=== PATIENT | female | born 1965 | race African-American/Black ===

== ENCOUNTER 2016-05-20 08:37 | Emergency (ER) | payer MEDICAID ==
[2016-05-20 09:20] LABS: APPEARANCE CLEAR (CLEAR); BILIRUBIN NEGATIVE (NEGATIVE); COLOR YELLOW (YELLOW); GLUCOSE NEGATIVE (NEGATIVE); KETONE NEGATIVE (NEGATIVE); LEUKOCYTE ESTERASE NEGATIVE (NEGATIVE); NITRITE NEGATIVE (NEGATIVE); PROTEIN NEGATIVE (NEGATIVE); SPECIFIC GRAVITY 1.015 (1.005-1.020); UROBILINOGEN NORMAL (NORMAL)
[2016-05-20 09:41] LABS: BASOPHILS 0.6 % (0.0-2.0); EOSINOPHILS 4.8 % (0-7); HEMATOCRIT 37.7 % (36.0-48.0); HEMOGLOBIN 12.3 g/dL (12-16); IMMATURE GRANULOCYTES 0.2 % (0-5); LYMPHOCYTES 42.2 % (15-50); MCH 30.1 pg (26.0-34.0); MCHC 32.6 g/dL (31.0-37.0); MCV 92.2 fL (80.0-100.0); MEAN PLATELET VOLUME 10.6 fL (7.4-10.4); MONOCYTES 6.4 % (2-11); NEUTROPHILS 45.8 % (40-80); RBC 4.09 10x6/uL (4.00-5.40); RDW 12.8 % (11.5-14.5); WBC 5.5 10x3/uL (4.8-10.8)
[2016-05-20 09:44] LABS: PLATELET COUNT 211 10x3/uL (130-400)
[2016-05-20 09:55] LABS: ALBUMIN 3.9 g/dL (3.4-5.0); ANION GAP 11.8 mmol/L (8-16); BILIRUBIN - TOTAL 0.45 mg/dL (0.2-1.3); CALCIUM 9.9 mg/dL (8.5-10.1); CARBON DIOXIDE 29.5 mmol/L (21.0-32.0); POTASSIUM - SERUM 4.3 mmol/L (3.5-5.1)
== END 2016-05-20 13:26 | disposition home or self-care (01) ==
LOC: D.ER 08:37
PROVIDERS: Emergency Medicine
DX: I10 Essential (primary) hypertension (principal); M79.604 Pain in right leg; C53.9 Malignant neoplasm of cervix uteri, unspecified; K21.9 Gastro-esophageal reflux disease without esophagitis

== ENCOUNTER 2016-08-23 10:00 | Inpatient (IN) | payer MEDICAID ==
[~2016-08-23] VITALS: Ht 170.2 cm; Wt 98.9 kg
[2016-08-23 10:52] LABS: APPEARANCE CLEAR (CLEAR); BILIRUBIN NEGATIVE (NEGATIVE); COLOR STRAW (YELLOW); GLUCOSE 1000 mg/dL (NEGATIVE); KETONE SMALL mg/dL (NEGATIVE); LEUKOCYTE ESTERASE NEGATIVE (NEGATIVE); NITRITE NEGATIVE (NEGATIVE); PROTEIN NEGATIVE (NEGATIVE); SPECIFIC GRAVITY 1.015 (1.005-1.020); UROBILINOGEN NORMAL (NORMAL)
[2016-08-23 11:04] LABS: BASOPHILS 0.2 % (0-2); EOSINOPHILS 2.1 % (0-7); HEMOGLOBIN 13.7 g/dL (12-16); IMMATURE GRANULOCYTES 0.2 % (0-5); LYMPHOCYTES 41.7 % (15-50); MCH 30.5 pg (26.0-34.0); MCHC 33.4 g/dL (31.0-37.0); MCV 91.3 fL (80.0-100.0); MEAN PLATELET VOLUME 11.3 fL (7.4-10.4); MONOCYTES 7.7 % (2-11); NEUTROPHILS 48.1 % (40-80); PLATELET COUNT 213 10x3/uL (130-400); RBC 4.49 10x6/uL (4.00-5.40); RDW 12.9 % (11.5-14.5); WBC 4.8 10x3/uL (4.8-10.8)
[2016-08-23 11:12] LABS: ALBUMIN 4.2 g/dL (3.4-5.0); ALKALINE PHOSPHATASE 180 U/L (46-116); ALT (SGPT) 31 U/L (10-68); CALC OSMOLALITY 289 mosm/kg (275-300); CALCIUM 9.8 mg/dL (8.5-10.1); CARBON DIOXIDE 28.5 mmol/L (21.0-32.0); CHLORIDE - SERUM 95 mmol/L (98-107); CREATININE - SERUM 1.3 mg/dL (0.6-1.3); POTASSIUM - SERUM 3.9 mmol/L (3.5-5.1); PROTEIN - SERUM 8.2 g/dL (6.4-8.2); SODIUM 133 mmol/L (136-145); UREA NITROGEN 17 mg/dL (7-18); eGFR NON AFRICAN AMERICAN 46 mL/min (90-120)
[2016-08-23 11:14] LABS: GLUCOSE 494 mg/dL (74-106)
[2016-08-23 11:51] LABS: KETONE - SERUM NEGATIVE (NEGATIVE)
[2016-08-23 14:24] VITALS: BP 119/68; BMI 34.2
[2016-08-23] MEDS ORDERED: ZESTORETIC 20-1 EACH PO (14:47)
[2016-08-23] MEDS ORDERED: PROTONIX40 MG PO (14:48)
[2016-08-23] MEDS ORDERED: BAYER ASPIRIN325 MG PO (14:48)
[2016-08-23 20:00] VITALS: BP 130/76
--- NOTE | 2016-08-23 20:00 | NUR ---
ASSESSMENT PER FLOWSHEET. IV PATENT LEFT AC OF NS AT 75CC'S/HR. SITE CLEAR. UP AD JOAQUINA TO BR VOIDS WELL. SR UP X1 CALL LIGHT WITHIN REACH DAUGHTER AT BEDSIDE. HX OF OLD CVA WITH RT SIDE SLIGHTLY WEAKER THAN LEFT.
--- NOTE | 2016-08-23 21:00 | NUR ---
DRCN=804. REGULAR INSULIN 28 UNITS GIVEN SUBC PER S/S TO LEFT UPPER ABDOMEN.SNACK OF LEANDRA CRACKERS AND DIET LEMONLIME SODA.
[2016-08-24] VITALS: BP 129/70
--- NOTE | 2016-08-24 | NUR ---
KVQD=376 NO COVERAGE PER MD ORDERS.
--- NOTE | 2016-08-24 03:17 | NUR ---
ZPSW=117. PT WAS GIVEN A SNACK OF LEANDRA CRACKERS AND PEANUT BUTTER WITH A DIET LEMONLIME SODA.
[2016-08-24 04:00] VITALS: BP 115/71
[2016-08-24 05:17] LABS: HEMOGLOBIN A1C 12.3 % (4.8-6.0)
[2016-08-24 05:30] LABS: ALBUMIN 3.5 g/dL (3.4-5.0); BILIRUBIN - TOTAL 0.38 mg/dL (0.2-1.3); CALCIUM 9.2 mg/dL (8.5-10.1); CARBON DIOXIDE 28.3 mmol/L (21.0-32.0); PROTEIN - SERUM 6.8 g/dL (6.4-8.2)
[2016-08-24 05:37] LABS: CREATININE - SERUM 0.9 mg/dL (0.6-1.3); POTASSIUM - SERUM 3.3 mmol/L (3.5-5.1)
--- NOTE | 2016-08-24 07:15 | NUR ---
PATIENT RECEIVED IN RIGHT LATERAL POSITION RESTING QUIETLY. RESPIRATIONS EVEN AND UNLABORED. DENIES NEEDS. SIDE RAILS UP X1. BED IN LOW POSITION. CALL LIGHT IN REACH.
[2016-08-24 08:35] VITALS: BP 138/73
--- NOTE | 2016-08-24 08:45 | NUR ---
PATIENT SITTING UP ON SIDE OF BED. NO SIGNS OF DISTRESS NOTED. DIETITIAN AT BEDSIDE. BED IN LOW POSITION. CALL LIGHT IN REACH.
--- NOTE | 2016-08-24 12:06 | NUR ---
PATIENT SITTING UP IN CHAIR ALERT WITH FAMILY PRESENT. NO SIGNS OF DISTRESS NOTED. ACCU CHECK 344. INSULIN PER SLIDING SCALE. NO NEEDS VOICED. CALL LIGHT IN REACH.
--- NOTE | 2016-08-24 12:22 | NUR ---
Nutrition Consult: Consult received for DM diet education. Pt reported that she drinks sweet tea and lemonade frequently. She said that a few weeks ago she "got depressed" and went on a "binge" of drinking abdias. Pt stated that she eats a lot of salads and vegetables. She does not eat much meat. Spoke with pt regarding blood sugar goal range, A1C goal range and what her numbers were now. Explained what diabetes is, how CHO intake affects blood sugar, and what foods contain CHO. Provided examples of a sample meal and explained label reading. Demonstrated CHO counting with pt. Stressed the importance of consistent meals/snacks including CHO each time. Pt stated that she was ready and willing to make these changes and wanted to feel better. Encouraged pt to contact RD with any questions/concerns. Thank you for the consult. RD following.
[2016-08-24 12:28] VITALS: Ht 170.2 cm; Wt 98.9 kg
[2016-08-24] MEDS ORDERED: LANTUS SOL100 UNIT/1 SC (13:41)
[2016-08-24] MEDS ORDERED: GLUCOPHAGE500 MG PO (13:42)
[2016-08-24 13:46] VITALS: BP 133/67
--- NOTE | 2016-08-24 14:04 | NUR ---
Patient Name: WILLI MCKEON Admission Status: ER Accout number: [id number] Admission Date: 08-23-2016 : 1965 Admission Diagnosis: Attending: OSMANY Current LOS: 1 Anticipated DC Date: 08-24-2016 Planned Disposition: Home with Home Health Primary Insurance: MEDICAID [place] Discharge Planning Comments: CM MET WITH PATIENT AND DAUGHTER (TIFFANIE) REGARDING D/C NEEDS AND PLANS. PATIENT STATED HER DAUGHTER WILL DRIVE HER HOME AT DISCHARGE. PATIENT HAS 4 STEPS W/RAILS TO ENTER HOME AND NO STAIRS ONCE INSIDE. PATIENT IS INDEPENDENT WITH HER CARE AND HAS A CANE AT HOME. PATIENT IS PICKING UP A GLUCOMETER AND STRIPS AT [facility] AT DISCHARGE TODAY. PATIENTS PCP IS DR. LOUIE PRINCE AT [facility]. PHARMACY IS [facility] [address]. PATIENT CHOSE [facility] AND SIGNED THE BREN FORM. CM WILL CONTINUE TO FOLLOW PATIENT WITH D/C NEEDS AND PLANS. PCP DR. LOUIE PRINCE AT [facility] [address]- [phone] TIFFANIE (DAUGHTER) [phone] Industrial Sales Engineer: Norma Xie Is the patient Alert and Oriented? Yes 0 * How many steps to enter\exit or inside your home? 4 W/RAILS 0 * PCP DR. LOUIE PRINCE ([facility]) 0 * Pharmacy [facility] [address] 0 * Preadmission Environment Home with Family 0 * ADLs Independent 0 * Equipment Cane 0 * List name and contact numbers for known caregivers / representatives who currently or will assist patient after discharge: TIFFANIE (DAUGHTER) [phone] 0 * Community resources currently utilized None 0 * Additional services required to return to the preadmission environment? Yes 0 * Can the patient safely return to the preadmission environment? Yes 0 * Has this patient been hospitalized within the prior 30 days at any hospital? No 0 Grand Total: 0
--- NOTE | 2016-08-24 14:50 | NUR ---
D/C TEACHING PROVIDED. QUESTIONS ANSWERED. DAUGHTER AT BEDSIDE. IV TO LEFT AC D/C WITH CATH TIP INTACT. SITE COVERED WITH GAUZE AND BANDAID.
--- NOTE | 2016-08-24 15:01 | NUR ---
PATIENT D/C HOME WITH DAUGHTER. REFUSES WHEELCHAIR ASSIST. AMBULATED OFF UNIT.
== END 2016-08-24 15:02 | disposition home health service (06) | DRG 639 ==
LOC: D.ER 10:00 → D.MS 13:31
PROVIDERS: Emergency Medicine; ADMIT Family Medicine
DX: E11.65 Type 2 diabetes mellitus with hyperglycemia (principal); I10 Essential (primary) hypertension; Z87.891 Personal history of nicotine dependence

== ENCOUNTER 2016-11-18 08:33 | Emergency (ER) | payer MEDICAID ==
[2016-08-24 12:28] VITALS: BMI 34.1
[~2016-11-18 08:33] MED LIST: BAYER ASPIRIN325 MG PO; GLUCOPHAGE500 MG PO; LANTUS SOL100 UNIT/1 SC; PROTONIX40 MG PO; ZESTORETIC 20-1 EACH PO
== END 2016-11-18 09:31 | disposition home or self-care (01) ==
LOC: D.ER 08:33
DX: S40.861A Insect bite (nonvenomous) of right upper arm, initial encounter (principal); L03.113 Cellulitis of right upper limb; I10 Essential (primary) hypertension; K21.9 Gastro-esophageal reflux disease without esophagitis

== ENCOUNTER 2017-04-29 10:50 | Observation (INO) | payer MEDICAID ==
[~2017-04-29] VITALS: Ht 170.2 cm; Wt 96.2 kg
--- NOTE | ~2017-04-29 | EC ---
PATIENT:WILLI MCKEON DATE OF SERVICE: 04/29/17 SEX: F MEDICAL RECORD: [id number] DATE OF : [birth year] LOCATION:D.M2 D.212 AGE OF PATIENT: 51 ADMISSION DATE: 04/29/17 REFERRING PHYSICIAN: INTERPRETING PHYSICIAN: ARNULFO KENDRICK MD ECHOCARDIOGRAM REPORT ECHO CHARGES 4 ECHO COMPLETE CLINICAL DIAGNOSIS: CHF ECHOCARDIOGRAPHIC MEASUREMENTS (adult normal given) AC root (d.<3.7cm) 3.0 cm LV Septum d (<1.2 cm> 1.4 cm Valve Excursion 1.9 cm LV Septum (systole) 1.7 cm Left Atria (s.<4.0cm> 4.4 cm LVPW d(<1.2cm) 1.5 cm RV (d.<2.3cm) 4.1 cm LVPW (sytole) 2.0 cm LV diastole(<5.6CM) 4.4 cm MV E-F(>70mm/sec) cm LV systole 2.7 cm LVOT Diameter 1.7 cm MV exc.(>10mm) 1.5 cm Est.ejection fraction (50-75%) % Pericardial Effusion Y DOPPLER: LVIT cm/sec A 151 cm/sec E 182 cm/sec LA cm/sec RVSP 29 mmHg LVOT 106 cm/sec AOP1/2T m/s Asc. Ao 159 cm/sec RVOT 93 cm/sec RA cm/sec PA 118 cm/sec AV Gradient Peak 10.17mmHg AV Mean 5.41 mmHg AV Area 1.2 cm MV Gradient Peak 24.55mmHg MV Mean 11.00mmHg MV Area cm COMMENTS: Rotary Dryer Operator: Bella KING Signal Helper: 1 Dr. Kendrick TAPE# PACS DATE OF SERVICE: 04/29/2017 Echocardiogram FINDINGS: 1. Left ventricular chamber size is within normal limits. Left ventricular systolic function is normal. Overall ejection fraction estimated at 60%. 2. Left atrium is enlarged at 4.4 cm. Right atrium and right ventricular chamber sizes are as well mildly dilated. 3. Valvular structures have normal structure and motion. ECHOCARDIOGRAM REPORT [id number] WILLI MCKEON 4. Doppler interrogation reveals mild aortic insufficiency, severe mitral regurgitation, and mild tricuspid regurgitation. No other valvular insufficiency or stenosis. Pulmonary systolic pressure is normal at 29 mmHg. 5. No evidence of pericardial effusion or left ventricular thrombus. TRANSINT:[id number] Voice Confirmation ID: [id number] DOCUMENT ID: [id number] ARNULFO KENDRICK MD at 1025 CC: [id number] DICTATION DATE: 04/29/17 1356 YARD GENERAL CAR SUPERVISOR: 04/29/17 1443 DIS IN 05/01/17 [place] [id number] [place] [id number]
--- NOTE | ~2017-04-29 | HEMODYNAMI ---
PATIENT:WILLI MCKEON MEDICAL RECORD: [id number] : [birth year] LOCATION:[address] [id number] ADMISSION DATE: 04/29/17 Generatedon:04/29/201714:30 Patient name: WILLI MCKEON Patient #: [id number] SSN: : 1965 Date of study: 04/29/2017 Page: Of Hemodynamic Procedure Report Patient Data Patient Demographics Procedure consent was obtained First Name: WILLI Gender: Female Last Name: MIKE : 1965 Patient #: [id number] Age: 51 year(s) Race: Black Additional ID: [id number] Contact details Address: [address] [place] [address] State: [place] City: [place] Zip code: [address] Past Medical History Allergies Allergen Reaction Date Comments Reported Other allergy 04/29/2017 amoxicilin Admission Admission Data Admission Date: 04/29/2017 Admission Time: 12:48 Room #: D.2122 Lab Results Lab Result Date: 04/29/2017 Lab Result Time: 0:00 Biochemistry Name Units Result Min Max BUN mg/dl 15 --(--*-)-- 7 18 Creatinine mg/dl 1 --(--*-)-- 0.6 1.3 CBC Name Units Result Min Max Hemoglobin g/dl 11.9 *-(----)-- 13.5 17.5 Procedure Procedure Types Cath Procedure Diagnostic Procedure [facility] w/Coronaries FFR/IVUS Intra-Coronary IVUS Initial PCI Procedure Coronary Stent Coronary Stent Initial Miscellaneous Procedures Moderate Sedation up to 30 minutes Procedure Description Procedure Date Procedure Date: 04/29/2017 Procedure Start Time: 14:00 Procedure End Time: 14:24 Procedure Staff Name Function Marilu De Los Santos RT Monitor Marco Kendrick MD Performing Physician Mis Booth RT Scrub Josselin Shipman RN Nurse Procedure Data Cath Procedure Fluoroscopy Diagnostic fluoroscopy Total fluoroscopy Time: 5.6 time: 5.6 min min Diagnostic fluoroscopy Total fluoroscopy dose: 948 dose: 948 mGy mGy Contrast Material Contrast Material Type Amount (ml) Isovue 300 145 Entry Location Entry Primary Successful Side Size Upsize Upsize Entry Closure Medel ccessful Closure Location (Fr) 1 (Fr) 2 (Fr) Remarks Device Remarks Radial Right 6 Fr Mechanical artery Short Compression Estimated blood loss: 5 ml Diagnostic catheters Device Type Used For End Catheter Placement DIAGNOSTIC Surveyor 110cm 5 Multi-vessel Fr catheter ([id number]) Angiography Procedure Complications No complications Procedure Medications Medication Administration Route Dosage 0.9% NaCl I.V. 100 ml/hr Oxygen NC 2 l/min Lidocaine 2% added to field 20 Heparin Flush Bag added to field 2 bags (1000units/500ml NS) Radial Cocktail added to field 1 syringe (Verapomil 2mg/Nitro 400mcg/Heparin 1500units) Versed I.V. 2 mg Fentanyl I.V. 50 mcg Fentanyl I.V. 50 mcg Versed I.V. 1 mg Heparin Bolus I.V. 4000 units Versed I.V. 1 mg Fentanyl I.V. 50 mcg Fentanyl I.V. 50 mcg Versed I.V. 1 mg Integrilin (Bolus I.V. 9.5 ml 2mg/ml) Nitroglycerin IC/IA I.C. 200 mcg Versed I.V. 1 mg Plavix P.O. 600 mg Hemodynamics Rest HGB: 11.9 (g/dl) Heart Rate: 83 (bpm) Snapshots Pre Cath Intra NCS Post Cath Vital Signs Time Heart Resp SPO2 etCO2 NIBP (mmHg) Rhythm Pain Sedation Rate (ipm) (%) (mmHg) Status Level (bpm) 13:48:44 85 16 100 37.5 175/100(153) NSR 0 (11) 10(A) , No pain 13:53:05 88 14 98 39 167/95(143) NSR 0 (11) 10(A) , No pain 13:57:23 93 18 94 46.4 162/98(129) NSR 0 (11) 10(A) , No pain 14:01:41 76 14 98 38.2 156/89(119) NSR 0 (11) 10(A) , No pain 14:05:49 79 18 95 48.7 123/80(104) NSR 0 (11) 9(A) , No pain 14:10:00 77 21 98 37.4 111/95(100) NSR 0 (11) 9(A) , No pain 14:15:12 73 19 96 36.7 122/77(102) NSR 0 (11) 10(A) , No pain 14:20:27 72 20 96 38.2 127/74(115) NSR 0 (11) 9(A) , No pain 14:24:39 70 16 96 30.7 114/67(105) NSR 0 (11) 10(A) , No pain Medications Time Medication Route Dose Verified Delivered Reason Note s Effectiveness by by 13:47:52 0.9% NaCl I.V. 100 Marco Josselin used for ml/hr Mireille Shipman RN procedure 13:53:27 Oxygen NC 2 l/min Marcodebora Schwab Per physician Mireille Shipman RN 13:53:34 Lidocaine 2% added 20ml Marco Marco for local to vial Mireille Kendrick MD anesthetic field 13:53:42 Heparin Flush added 2 bags Marco Lara used for Bag to Mireille Kendrick MD procedure (1000units/500ml field NS) 13:53:52 Radial Cocktail added 1 Marco Marco for (Verapomil to syringe Mireille Kendrick MD vasodilation 2mg/Nitro field 400mcg/Hepari 13:59:05 Versed I.V. 2 mg Marco Josselin for sedation Mireille Shipman RN 13:59:12 Fentanyl I.V. 50 mcg Marco Josselin for sedation Mireille Shipman RN 14:03:41 Fentanyl I.V. 50 mcg Marco Josselin for sedation Mireille Shipman RN 14:03:47 Versed I.V. 1 mg Marco Josselin for sedation Mireille Shipman RN 14:06:43 Heparin Bolus I.V. 4000 Marco Josselin for VERI FIED units Mireille Shipman RN anticoagulation BY 14:07:15 Versed I.V. 1 mg Marco Josselin for sedation Mireille Shipman RN 14:07:19 Fentanyl I.V. 50 mcg Marco Josselin for sedation Mireille Shipman RN 14:09:23 Fentanyl I.V. 50 mcg Marco Josselin for sedation Mireille Shipman RN 14:09:32 Versed I.V. 1 mg Marco Josselin for sedation Mireille Shipman RN 14:14:19 Integrilin I.V. 9.5ml Marco Schwab for WAST E (Bolus 2mg/ml) Mireille Shipman RN antiplatelet 0.5ML therapy 14:18:51 Nitroglycerin I.C. 200mcg Marco Lara for IC/IA Mireille Kendrick MD vasodilation 14:19:03 Versed I.V. 1 mg Marco Schwab for sedation Mireille Shipman RN 14:28:54 Plavix P.O. 600 mg Marco Schwab for Mireille Shipman RN antiplatelet therapy Procedure Log Time Note 13:26:35 Signed procedure consent form obtained from patient. 13:26:39 Time tracking: Regular hours 13:26:45 Plan of Care:Hemodynamics will remain stable., Cardiac rhythm will remain stable., Comfort level will be maintained., Respiratory function will remain adequate., Patient/ family verbilizes understanding of procedure., Procedure tolerated without complication., Recovers from procedure without complications.. 13:27:47 Marilu De Los Santos RT(R) sent for patient. Start room use. 13:28:26 Patient allergic to Other allergyamoxicilin 13:33:00 Lab Result : Hemoglobin 11.9 g/dl 13:33:00 Lab Result : Creatinine 1 mg/dl 13:33:00 Lab Result : BUN 15 mg/dl 13:33:05 Lab results completed and on chart. 13:38:21 Patient received from ED to CCL 2 Alert and oriented. Tansferred to table in Supine position. 13:38:22 Warm blankets applied, and michele hugger turned on for patient comfort. 13:38:23 Correct patient and procedure confirmed by team. 13:38:24 ECG and BP/O2 sat monitors applied to patient. 13:47:30 Vital chart was started 13:47:52 0.9% NaCl 100 ml/hr I.V. was administered by Josselin Shipman RN; used for procedure; 13:50:00 Baseline sample Acquired. 13:50:06 Rhythm: sinus tachycardia 13:50:07 Full Disclosure recording started 13:50:11 H&P Date Dictated: 04/29/2017 New H&P dictated by physician.. 13:50:12 Pre-procedure instructions explained to patient. 13:50:13 Pre-op teaching completed and patient verbalized understanding. 13:50:14 Family in waiting room. 13:50:15 Patient NPO since Midnight. 13:50:19 Is the patient allergic to Iodine/contrast media? No. 13:50:20 Was the patient premedicated? No 13:50:46 Is patient on blood thinner?No 13:50:48 Patient diabetic? Yes. 13:50:50 If diabetic: On Metformin? Yes 13:50:53 If on Metformin: Last Dose? 04/28/2017 13:50:55 Previous problem with sedation/anesthesia? No ? 13:50:58 Snore? Yes 13:50:59 Sleep apnea? No 13:51:00 Opens mouth fully? Yes 13:51:00 Deviated septum? No 13:51:01 Sticks out tongue? Yes 13:51:03 Airway obstruction? No ? 13:51:05 Dentures? No ? 13:51:09 Pre procedure: right dorsailis pedis pulse 2+ Normal; easily identifiable; not easily obliterated 13:51:12 Pre procedure: left dorsailis pedis pulse 2+ Normal; easily identifiable; not easily obliterated 13:51:14 Patient pain scale 0/10 ?. 13:51:23 IV patent on arrival in left forearm with 0.9% NaCl at [facility]. 13:51:28 Right Radial & Right Groin area was prepped with chlora-prep and draped in sterile fashion 13:51:29 Sharps counted by scrub and verified by R.N. 13:51:29 Alarms reviewed by R. N. 13:51:31 Final Timeout: patient, procedure, and site verified with staff and physician. All members of the team are in agreement. 13:51:31 --------ALL STOP TIME OUT------ 13:51:31 Physician arrived 13:51:33 Right Radial & Right Groin site verified by team. 13:51:36 Physical assessment completed. ASA score P 2 - A patient with mild systemic disease as per Marco Kendrick MD. 13:51:39 Sedation plan: IV Moderate Sedation Medication:Versed, Fentanyl 13:51:46 Use device set Radial Dx or PCI 13:51:47 Medline Cath Pack ([id number]) opened to sterile field. 13:51:47 ACIST Syringe (34216) opened to sterile field. 13:51:48 SHEATH 6FR Slender ([id number]) opened to sterile field. 13:51:48 Bag Decanter (2002) opened to sterile field. 13:51:49 ACIST Hand Control (14185) opened to sterile field. 13:51:49 DIAGNOSTIC WIRE .035 260cm J wire (243106) opened to sterile field. 13:51:50 ACIST Manifold (62323) opened to sterile field. 13:51:52 MBrace Wrist Support ([id number]) opened to sterile field. 13:51:56 TR BAND Standard ([id number]) opened to sterile field. 13:53:27 Oxygen 2 l/min NC was administered by Josselin Shipman RN; Per physician; 13:53:34 Lidocaine 2% 20ml vial added to field was administered by Marco Kendrick MD; for local anesthetic; 13:53:42 Heparin Flush Bag (1000units/500ml NS) 2 bags added to field was administered by Marco Kendrick MD; used for procedure; 13:53:52 Radial Cocktail (Verapomil 2mg/Nitro 400mcg/Heparin 1500units) 1 syringe added to field was administered by Marco Kendrick MD; for vasodilation; 13:57:35 Zero performed for pressure channel P1 13:57:40 Zero performed for pressure channel P1 13:59:05 Versed 2 mg I.V. was administered by Josselin Shipman RN; for sedation; 13:59:12 Fentanyl 50 mcg I.V. was administered by Josselin Shipman RN; for sedation; 14:00:38 Procedure started. 14:00:42 Local anesthetic to right radial artery with Lidocaine 2% by Marco Kendrick MD.INITIAL ACCESS ONLY 14:01:09 A 6 Fr Short sheath was inserted into the Right Radial artery 14:03:30 A DIAGNOSTIC Surveyor 110cm 5 Fr catheter ([id number]) was advanced over the wire and used for Multi-vessel Angiography. 14:03:34 LV gram done using BENTLEY 14:03:37 Injector settings: Ml/sec: 5, Volume: 15, 14:03:41 Fentanyl 50 mcg I.V. was administered by Josselin Shipman RN; for sedation; 14:03:42 EF : 60 % 14:03:47 Versed 1 mg I.V. was administered by Josselin Shipman RN; for sedation; 14:03:58 LCA angiography performed. 14:04:47 RCA angiography performed. 14:06:43 Heparin Bolus 4000 units I.V. was administered by Josselin Shipman RN; for anticoagulation; VERIFIED BY 14:06:46 Catheter removed. 14:06:49 Proceeding to intervention. 14:07:02 INFLATOR Merit BasixCompak (BY2236) opened to sterile field. 14:07:03 [place] IVUS Catheter (50224Z) opened to sterile field. 14:07:15 Versed 1 mg I.V. was administered by Josselin Shipman RN; for sedation; 14:07:16 CHOICE PT Extra Support 182cm wire ([id number]) opened to sterile field. 14:07:19 Fentanyl 50 mcg I.V. was administered by Josselin Shipman RN; for sedation; 14:07:27 GUIDE 6FR XBLAD 3.5 catheter ([id number]) opened to sterile field. 14:07:42 6 Fr xblad 3.5 guide catheter was inserted over the wire 14:07:49 choice pt wire advanced. 14:09:04 Wire advanced across lesion. 14:09:07 IVUS catheter advanced over wire. 14:09:23 Fentanyl 50 mcg I.V. was administered by Josselin Shipman RN; for sedation; 14:09:32 Versed 1 mg I.V. was administered by Josselin Shipman RN; for sedation; 14:14:19 Integrilin (Bolus 2mg/ml) 9.5ml I.V. was administered by Josselin Shipman RN; for antiplatelet therapy; WASTE 0.5ML 14:14:50 IVUS pass to Circ lesion performed. 14:14:53 IVUS catheter removed over wire. 14:15:17 Inflation Number: 1 A INTEGRITY RX 2.25 x 18 stent ([id number]) was prepped and advanced across the Mid CX. The stent was deployed at 11 DUNG for 0:10 (min:sec). 14:18:51 Nitroglycerin IC/IA 200mcg I.C. was administered by Marco Kendrick MD; for vasodilation; 14:19:03 Versed 1 mg I.V. was administered by Josselin Shipman RN; for sedation; 14:19:30 Stent catheter was removed intact over wire. 14:21:22 Inflation Number: 2 A INTEGRITY RX 3.0 x 12 stent ([id number]) was prepped and advanced across the Mid CX. The stent was deployed at 9 DUNG for 0:10 (min:sec). 14:22:32 Stent catheter was removed intact over wire. 14:22:33 Guide catheter removed. 14:22:33 Wire removed. 14:22:47 Sheath removed intact; hemostasis achieved with Mechanical Compression to the Right Radial artery. 14:22:48 Procedure ended.(Physican Out) 14:23:15 Fluoroscopy time 05.60 minutes. 14:23:20 Fluoroscopy dose: 948 mGy 14:23:20 Flurop Dose total: 948 14:23:25 Contrast amount:Isovue 300 145ml. 14:23:27 Sharps counted by scrub and verified by R.N. 14:23:29 TR band inflated with 12cc of air. 14:23:31 Insertion/operative site no bleeding no hematoma. 14:23:35 Post right radial artery:stable 14:23:37 Post Procedure Pulses reassessed and unchanged 14:23:41 Post procedure rhythm: unchanged. 14:23:47 Estimated blood loss: 5 ml 14:23:48 Post procedure instruction explained to patient.Patient verbalizes understanding. 14:23:49 Patient needs reinforcement of post procedure teaching. 14:24:14 Procedure and supply charges have been captured, reviewed, submitted and are correct. 14:24:14 Procedure type changed to Cath procedure, Diagnostic procedure, LHC, LHC w/Coronaries, FFR/IVUS, Intra-Coronary IVUS Initial, PCI procedure, Coronary Stent, Coronary Stent Initial, Miscellaneous Procedures, Moderate Sedation up to 30 minutes 14:24:19 Procedure Complication : No complications 14:24:21 See physician's report for complete and final results. 14:24:21 Vital chart was stopped 14:24:35 Report given to [facility]. 14:24:38 Patient transfered to [facility] with Stretcher. 14:24:40 Full Disclosure recording stopped 14:24:40 Procedure ended. 14:24:46 ACC-PCI Only Patient was given prescriptions, or instructed by Marco Kendrick MD to start/continue the following medications upon discharge: Plavix 14:24:48 End room use (Document Last) 14:28:54 Plavix 600 mg P.O. was administered by Josselin Shipman RN; for antiplatelet therapy; Intervention Summary Intervention Notes Time ActionType Lesion and Equipment Action# Pressure Duration Attributes Used 14:15:17 Place stent Mid CX INTEGRITY RX 1 11 00:10 2.25 x 18 stent ([id number]) 14:21:22 Place stent Mid CX INTEGRITY RX 2 9 00:10 3.0 x 12 stent ([id number]) Device Usage Item Name Manufacture Quantity Catalog Number Hospital Part Current Mini mal Lot# / Charge Number Stock Stock Serial# Code ACIST Acist 1 27906 843500 306468 905555 20 Syringe [employer]int[employer] Technologies (52426) Systems Inc Medline Cath Cardinal 1 [id number] 485804 41158 841171 5 Pack PaletteApp ([id number]) Bag Decanter Microtek 1 2001S 790921 05654 901924 5 () Medical Inc. SHEATH 6FR Terumo 1 [id number] 624623 237449 617278 40 Slender ([id number]) DIAGNOSTIC St Christain 1 091408 151595 368166 738246 30 WIRE .035 260cm J wire (174568) ACIST Hand Acist 1 36227 191364 391711 028849 5 Control Medical (91202) Systems Inc ACIST Acist 1 79927 896662 850628 779530 5 Manifold Medical (03155) Systems Inc MBrace Wrist Advanced 1 140-0250-00 570017 95652 798721 5 Support Vascular (038520032) Dynamics TR BAND Terumo 1 [id number] 774694 988007 100076 40 Standard ([id number]) DIAGNOSTIC Terumo 1 40-5013 773082 177760 487903 5 Surveyor 110cm 5 Fr catheter (039263) INFLATOR Merit 1 [id number] 547880 451400 820286 15 [facility] Medical BasixCompak (FK6755) Aurora Aurora 1 05263F 697418 866214 559814 8 [place] IVUS Catheter (69369K) CHOICE PT [place] 1 [id number] 811096 794080 239952 5 Extra Scientific Support 182cm wire ([id number]) GUIDE 6FR Cardinal 1 [id number] 942531 373031 284579 10 XBLAD 3.5 Health catheter (20526431) INTEGRITY RX Medtronic 1 [id number] 272875 474035 761702 5 [id number] 2.25 x 18 stent ([id number]) INTEGRITY RX Medtronic 1 [id number] 546474 273331 466560 5 [id number] 3.0 x 12 stent ([id number]) Signature Audit [place] Stage Time Signature Unsigned Intra-Procedure 04/29/2017 Marilu De Los Santos RT(R) 2:27:07 PM RT(R) 04/29/2017 2:28:19 PM Intra-Procedure 04/29/2017 Marilu De Los Santos 2:30:45 PM RT(R) Signatures Monitor : Marilu De Los Santos RT Signature : Date : Time : [address] [address]
--- NOTE | ~2017-04-29 | CN ---
PATIENT NAME:WILLI CARMONA MEDICAL RECORD: [id number] : 63 LOCATION:[facility].2122 ADMIT DATE: 04/29/17 ACCOUNT: [id number] CONSULTING PHYSICIAN: ARNULFO VALENCIA MD REFERRING PHYSICIAN: TRAMAINE GALLARDO MD DATE OF CONSULTATION: 04/29/2017 DIAGNOSES: 1. Unstable angina. 2. Diabetes. 3. Hypertension. 4. Hyperlipidemia. 5. Family history of coronary artery disease. HISTORY OF PRESENT ILLNESS: Mrs. Carmona has been having chest pain, chest discomfort compatible with angina. She has been told in the past that she had mild heart attack, but no cardiac catheterization was ever performed in [place]. She has been having increasing episodes of chest pain, chest discomfort compatible with angina. She had severe episodes of chest pain today. PHYSICAL EXAMINATION: GENERAL APPEARANCE: Well-nourished, well-developed, appears stated age. Level of distress, comfortable. PSYCHIATRIC: Mental status, alert, normal affect. Orientation, oriented to time, place and person. EYES: Lids and conjunctiva, noninjected. No discharge, no pallor. ENT: Lips, teeth, gums, normal dentition. Oropharynx, no cyanosis, no pallor. NECK: Carotid arteries, bilateral normal upstroke, no bruits, no thrills. JUGULAR VEINS: No jugular venous pressure or distention. CERVICAL LYMPH NODES: Nontender, nonenlarged. THYROID: Not enlarged. Nontender. No nodules. LUNGS: Respiratory effort, unlabored. CHEST: Normal curvature. No thoracic deformity. No chest wall tenderness. Percussion, resonant. Auscultation, clear. No wheezes, no rales, no rhonchi. CARDIOVASCULAR: Precordial exam, nondisplaced. No heaves or pericardial thrills. Rate and rhythm, regular. Heart sounds, normal S1, normal S2. No S3, no gallop, no rub. Systolic murmur, not heard. Diastolic murmur, not heard. EXTREMITIES: No cyanosis, no edema. Peripheral pulses, full and equal in all extremities, except as noted. No bruits appreciated. ABDOMEN: Soft, nondistended. Normal aorta. No bruit. Nontender. No masses. Liver, nontender, no hepatomegaly. Spleen, nontender, no splenomegaly. MUSCULOSKELETAL: No joint tenderness. No joint swelling. No erythema. NEUROLOGICAL: Normal gait, normal strength, normal tone. SKIN: Warm and dry. REVIEW OF SYSTEMS: The patient reports easy bruising but reports no swollen glands. The patient reports no fever, no night sweats, no significant weight gain, no significant weight loss. No significant exercise tolerance. The patient reports no dry eyes, no irritation, no vision change. Patient reports no difficulty hearing and no ear pain. Patient reports no frequent nose bleeds or nose and sinus problems. Patient reports on arm pain on exertion. No shortness of breath while lying down. No history of heart murmur. Patient reports no cough, no wheezing or coughing up blood. Patient reports no abdominal pain, no vomiting. Normal appetite. No diarrhea and not vomiting blood. No nausea and no constipation. Patient reports no incontinence. No CONSULT REPORT [id number] WILLI CARMONA difficulty urinating. No hematuria. No increased frequency. Patient reports no muscle aches. No weakness, no arthralgias, no back pain. No swelling of the extremities. Patient reports no abnormal mole, no jaundice, no rashes. Reports no loss of consciousness. No weakness and no numbness. No seizures, dizziness, or headaches. The patient reports no depression, no sleep disturbance, feeling safe in a relationship and no alcohol abuse. Patient reports on fatigue. Reports no runny nose or sinus pressure. No itching, no hives, and no frequent sneezing. OVERALL IMPRESSION: Chest pain compatible with angina with multiple cardiac risk factors, most likely she has hemodynamically significant coronary artery disease. We will proceed with coronary angiography. Further care depends upon findings of the angiography. TRANSINT:[id number] Voice Confirmation ID: [id number] DOCUMENT ID: [id number] ARNULFO VALENCIA MD at 1025 CC: [id number] DICTATION DATE: 04/29/17 1318 ASSOCIATE: 04/29/17 1419 DIS IN 05/01/17 [place] [id number] [place] [id number]
--- NOTE | ~2017-04-29 | OP ---
PATIENT NAME: WILLI MCKEON MEDICAL RECORD: [id number] :63 LOCATION:D.M2 D.2122 ADMISSION DATE:04/29/17 SURGEON: ARNULFO VALENCIA MD DATE OF OPERATION: 04/29/2017 DATE OF SERVICE: 04/29/2017 PROCEDURES: 1. PTCA stent left circumflex. 2. Left heart catheterization. 3. Selective coronary angiography. 4. Left ventriculogram. 5. Intravascular ultrasound. INDICATION: Angina and coronary artery disease. PROCEDURE IN DETAIL: After informed consent was obtained and after a detailed explanation of risks, benefits as well as alternative therapies, the patient elected to proceed with angiogram and angioplasty. The right radial area was prepped and draped in normal sterile fashion. The right radial artery was cannulated via modified Seldinger technique with placement of 6-Yakut sheath. All catheters exchanged through this sheath. FINDINGS: The left ventriculogram was performed in standard 30-degree BENTLEY view, reveals good cardiac wall motion throughout all segments. Overall ejection fraction 55%. SELECTIVE CORONARY ANGIOGRAPHY: 1. Left main showed no significant angiographic disease. 2. Left anterior descending has moderate irregularities, but no flow-limiting stenosis. 3. The left circumflex has a 60% to 70% stenosis throughout the mid vessel confirmed by intravascular ultrasound. 4. Right coronary has moderate irregularities, but no flow-limiting stenosis. PTCA STENT OF THE LEFT CIRCUMFLEX: The stents used were 3.0 x 12 and 2.25 x 18, both Integrity stents. Result was 0% residual stenosis. OVERALL IMPRESSION: Successful percutaneous transluminal coronary angioplasty stent of the left circumflex going from 70% initial stenosis to 0% residual. TRANSINT:[id number] Voice Confirmation ID: [id number] DOCUMENT ID: [id number] ARNULFO VALENCIA MD at 1025 CC: [id number] DICTATION DATE: 04/29/[address] M[address] RUNNER: 04/29/17 1506 DIS IN 05/01/17 [place] [id number]
[2017-04-29 11:36] LABS: ALBUMIN 3.9 g/dL (3.4-5.0); ALKALINE PHOSPHATASE 85 U/L (46-116); ALT (SGPT) 20 U/L (10-68); BILIRUBIN - TOTAL 0.42 mg/dL (0.2-1.3); CALC OSMOLALITY 281 mosm/kg (275-300); CALCIUM 9.9 mg/dL (8.5-10.1); CARBON DIOXIDE 28.7 mmol/L (21.0-32.0); CHLORIDE - SERUM 102 mmol/L (98-107); GLUCOSE 133 mg/dL (74-106); PROTEIN - SERUM 7.5 g/dL (6.4-8.2); SODIUM 140 mmol/L (136-145); UREA NITROGEN 15 mg/dL (7-18); eGFR NON AFRICAN AMERICAN 62 mL/min (90-120)
[2017-04-29 11:37] LABS: BASOPHILS 0.6 % (0-2); EOSINOPHILS 3.5 % (0-7); HEMATOCRIT 35.8 % (36.0-48.0); HEMOGLOBIN 11.9 g/dL (12-16); IMMATURE GRANULOCYTES 0.2 % (0-5); LYMPHOCYTES 39.5 % (15-50); MCH 30.7 pg (26.0-34.0); MCHC 33.2 g/dL (31.0-37.0); MCV 92.5 fL (80.0-100.0); MEAN PLATELET VOLUME 10.3 fL (7.4-10.4); MONOCYTES 6.1 % (2-11); NEUTROPHILS 50.1 % (40-80); PLATELET COUNT 265 10x3/uL (130-400); RBC 3.87 10x6/uL (4.00-5.40); RDW 12.8 % (11.5-14.5); WBC 4.9 10x3/uL (4.8-10.8)
[2017-04-29 11:47] LABS: CHOL - HDL RATIO 4.3 ratio (2.3-4.1); CHOLESTEROL, TOTAL 205 mg/dL (0-200); CKMB 0.8 U/L (0.0-3.6); CREATINE KINASE 165 UL (21-215); HDL CHOLESTEROL 48 mg/dL (32-96); LDL CHOLESTEROL 138 mg/dL (0-100); LDL-HDL RATIO 2.9 ratio (1.5-3.5); TRIGLYCERIDE 99 mg/dL (30-200)
[2017-04-29 11:48] LABS: TROPONIN-I < 0.017 ng/mL (0.000-0.060)
[2017-04-29 15:24] VITALS: BP 112/67; BMI 27.6
[2017-04-29 17:09] VITALS: BP 133/70
[2017-04-29 19:00] VITALS: BP 140/72
[2017-04-30 04:00] VITALS: BP 137/77
[2017-04-30 08:26] VITALS: BP 137/73
[2017-04-30 11:31] VITALS: Ht 170.2 cm; Wt 96.2 kg
[2017-04-30 11:40] VITALS: BP 117/63
[2017-04-30 16:11] VITALS: BP 121/65
[2017-04-30 20:25] VITALS: BP 115/60
[2017-05-01 01:13] VITALS: BP 139/53
[2017-05-01 04:32] VITALS: BP 109/55
[2017-05-01 05:24] LABS: BASOPHILS 0.4 % (0-2); EOSINOPHILS 3.6 % (0-7); HEMATOCRIT 37.9 % (36.0-48.0); HEMOGLOBIN 12.5 g/dL (12-16); IMMATURE GRANULOCYTES 0.2 % (0-5); LYMPHOCYTES 36.5 % (15-50); MCV 91.1 fL (80.0-100.0); MEAN PLATELET VOLUME 10.3 fL (7.4-10.4); MONOCYTES 10.2 % (2-11); NEUTROPHILS 49.1 % (40-80); PLATELET COUNT 270 10x3/uL (130-400); RBC 4.16 10x6/uL (4.00-5.40); WBC 5.2 10x3/uL (4.8-10.8)
[2017-05-01 05:50] LABS: ANION GAP 13.8 mmol/L (8-16); CARBON DIOXIDE 29.7 mmol/L (21.0-32.0); POTASSIUM - SERUM 3.5 mmol/L (3.5-5.1)
[2017-05-01 05:51] LABS: CREATININE - SERUM 1.5 mg/dL (0.6-1.3)
[2017-05-01 08:32] VITALS: BP 96/54
[2017-05-01 11:24] VITALS: BP 119/59
[2017-05-01] MEDS ORDERED: LIPITOR20 MG PO (13:53)
[2017-05-01] MEDS ORDERED: PLAVIX75 MG PO (13:54)
[2017-05-01 15:46] VITALS: BP 105/61
== END 2017-05-01 16:22 | disposition home or self-care (01) ==
LOC: D.ER 10:50 → D.M2 12:48 → OBSVTIME 12:48 → D.M2 05-01 16:22
PROVIDERS: Emergency Medicine; Internal Medicine Nephrology
DX: I25.110 Atherosclerotic heart disease of native coronary artery with unstable angina pectoris (principal); E11.9 Type 2 diabetes mellitus without complications; I10 Essential (primary) hypertension; E78.5 Hyperlipidemia, unspecified; I69.951 Hemiplegia and hemiparesis following unspecified cerebrovascular disease affecting right dominant side; D64.9 Anemia, unspecified

== ENCOUNTER → 2017-09-02 07:43 | Outpatient (CLI) | payer MEDICAID ==
[2017-04-30 11:31] VITALS: BMI 27.6
[~2017-09-02 07:43] MED LIST changes: +LIPITOR20 MG PO; +PLAVIX75 MG PO
== END | disposition home or self-care (01) ==
LOC: D.MAMMO 07:43
DX: Z12.31 Encounter for screening mammogram for malignant neoplasm of breast (principal)

== ENCOUNTER 2018-02-16 07:54 | Emergency (ER) | payer MEDICAID ==
[~2018-02-16] VITALS: Ht 170.2 cm; Wt 90.9 kg
[2018-02-16 07:59] VITALS: Ht 170.2 cm; Wt 90.9 kg
[2018-02-16 08:50] LABS: BASOPHILS 0.2 % (0-2); EOSINOPHILS 3.9 % (0-7); HEMATOCRIT 35.9 % (36.0-48.0); HEMOGLOBIN 11.8 g/dL (12-16); IMMATURE GRANULOCYTES 0.2 % (0-5); LYMPHOCYTES 32.2 % (15-50); MCH 29.7 pg (26.0-34.0); MCHC 32.9 g/dL (31.0-37.0); MCV 90.4 fL (80.0-100.0); MEAN PLATELET VOLUME 10.1 fL (7.4-10.4); NEUTROPHILS 56.5 % (40-80); PLATELET COUNT 225 10x3/uL (130-400); RBC 3.97 10x6/uL (4.00-5.40); RDW 13.3 % (11.5-14.5); WBC 5.4 10x3/uL (4.8-10.8)
[2018-02-16 09:10] LABS: ALBUMIN 3.9 g/dL (3.4-5.0); ALKALINE PHOSPHATASE 101 U/L (46-116); ALT (SGPT) 19 U/L (10-68); BILIRUBIN - TOTAL 0.56 mg/dL (0.2-1.3); CALC OSMOLALITY 283 mosm/kg (275-300); CALCIUM 9.4 mg/dL (8.5-10.1); CARBON DIOXIDE 28.4 mmol/L (21.0-32.0); CHLORIDE - SERUM 102 mmol/L (98-107); CREATININE - SERUM 0.9 mg/dL (0.6-1.3); GLUCOSE 161 mg/dL (74-106); POTASSIUM - SERUM 4.5 mmol/L (3.5-5.1); PROTEIN - SERUM 7.6 g/dL (6.4-8.2); SODIUM 141 mmol/L (136-145); UREA NITROGEN 13 mg/dL (7-18); eGFR NON AFRICAN AMERICAN 69 mL/min (90-120)
[2018-02-16 09:23] LABS: CKMB 0.8 U/L (0.0-3.6); CREATINE KINASE 134 UL (21-215); TROPONIN-I < 0.017 ng/mL (0.000-0.060)
[2018-02-16] MEDS ORDERED: NAPROSYN500 MG PO (09:44)
[2018-02-16 10:23] VITALS: BP 152/90
== END 2018-02-16 10:24 | disposition home or self-care (01) ==
LOC: D.ER 07:54
PROVIDERS: Family Medicine
DX: M54.12 Radiculopathy, cervical region (principal); G89.29 Other chronic pain; M54.2 Cervicalgia; I69.351 Hemiplegia and hemiparesis following cerebral infarction affecting right dominant side; E11.9 Type 2 diabetes mellitus without complications; I10 Essential (primary) hypertension; Z85.41 Personal history of malignant neoplasm of cervix uteri

== ENCOUNTER → 2018-11-22 12:29 | Outpatient (CLI) | payer MEDICAID ==
[2018-02-16 07:59] VITALS: BMI 31.4
[~2018-11-22 12:29] MED LIST changes: +NAPROSYN500 MG PO
--- NOTE | 2018-11-28 12:04 | EC ---
PATIENT:WILLI MCKEON DATE OF SERVICE: 11/22/18 SEX: F MEDICAL RECORD: [id number] DATE OF : 63 LOCATION:D[facility] AGE OF PATIENT: 52 ADMISSION DATE: 11/22/18 REFERRING PHYSICIAN: INTERPRETING PHYSICIAN: ARNULFO KENDRICK MD ECHOCARDIOGRAM REPORT ECHO CHARGES 4 ECHO COMPLETE Date: 11/22/18 CLINICAL DIAGNOSIS: HTN,MITRAL STENSOSIS , MITRAL AND TRICUSPID REGURG ECHOCARDIOGRAPHIC MEASUREMENTS (adult normal given) AC root (d.<3.7cm) 2.6 cm LV Septum d (<1.2 cm> 1.5 cm Valve Excursion 1.6 cm LV Septum (systole) 1.7 cm Left Atria (s.<4.0cm> 5.3 cm LVPW d(<1.2cm) 1.6 cm RV (d.<2.3cm) 4.1 cm LVPW (sytole) 1.8 cm LV diastole(<5.6CM) 3.9 cm MV E-F(>70mm/sec) cm LV systole 1.9 cm LVOT Diameter 1.6 cm MV exc.(>10mm) 1.4 cm Est.ejection fraction (50-75%) % DOPPLER: LVIT cm/sec A 171 cm/sec E 112 cm/sec LA cm/sec RVSP 83 mmHg LVOT 150 cm/sec AOP1/2T m/s Asc. 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 Kendrick TAPE# PACS Pericardial Effusion Y DATE OF SERVICE: 11/22/2018 PROCEDURE: Echocardiogram. FINDINGS: 1. Left ventricular chamber size is within normal limits. Left ventricular systolic function is normal. Overall ejection fraction estimated at 60%. 2. Left atrium is enlarged at 5.3 cm. Right atrium and right ventricular chamber sizes as well moderately dilated. 3. Valvular structures: Aortic valve demonstrates aortic sclerosis, but no ECHOCARDIOGRAM REPORT [id number] WILLI MCKEON significant aortic stenosis, mitral valve; however, demonstrates mitral stenosis, very thickened and demonstrate mitral stenosis. The gradient across the valve is 46 mmHg. This is really unchanged from previous echo that was 45 mmHg. There is as well as severe mitral regurgitation, moderate to severe tricuspid regurgitation, no other valvular insufficiency or stenosis. Pulmonary systolic pressure is markedly elevated estimated 83 mmHg. 4. No evidence of pericardial effusion or left ventricular thrombus. TRANSINT:[id number] Voice Confirmation ID: [id number] DOCUMENT ID: [id number] ARNULFO KENDRICK MD at 1204 CC: [id number] DICTATION DATE: 11/27/18 1129 JUNIOR ASSISTANT MANAGER: 11/27/18 1140 DEP CLI 11/22/18 [facility] [address] [place] [address]
== END | disposition home or self-care (01) ==
LOC: D.HCCARDIO 12:29
PROVIDERS: ATTEND Internal Medicine Interventional Cardiology
DX: I10 Essential (primary) hypertension (principal)

== ENCOUNTER 2019-03-19 07:09 | Emergency (ER) | payer MEDICAID ==
[~2019-03-19] VITALS: Ht 170.2 cm; Wt 90.7 kg
[2019-03-19 07:16] VITALS: Ht 170.2 cm; Wt 90.7 kg
[2019-03-19 07:45] LABS: ANION GAP 12.8 mmol/L (8-16); CALCIUM 9.3 mg/dL (8.5-10.1); CARBON DIOXIDE 28.5 mmol/L (21.0-32.0); CREATININE - SERUM 0.9 mg/dL (0.6-1.3); POTASSIUM - SERUM 4.3 mmol/L (3.5-5.1)
[2019-03-19 07:51] LABS: BILIRUBIN - TOTAL 0.42 mg/dL (0.2-1.3); PROTEIN - SERUM 7.6 g/dL (6.4-8.2)
[2019-03-19 07:54] LABS: BASOPHILS 0.4 % (0-2); EOSINOPHILS 2.5 % (0-7); HEMATOCRIT 37.9 % (36.0-48.0); HEMOGLOBIN 12.5 g/dL (12-16); IMMATURE GRANULOCYTES 0.2 % (0-5); LYMPHOCYTES 36.4 % (15-50); MCH 30.9 pg (26.0-34.0); MCV 93.6 fL (80.0-100.0); MONOCYTES 9.3 % (2-11); NEUTROPHILS 51.2 % (40-80); PLATELET COUNT 232 10x3/uL (130-400); RBC 4.05 10x6/uL (4.00-5.40); RDW 12.8 % (11.5-14.5); WBC 5.5 10x3/uL (4.8-10.8)
[2019-03-19 08:04] LABS: APPEARANCE CLEAR (CLEAR); BILIRUBIN NEGATIVE (NEGATIVE); COLOR YELLOW (YELLOW); GLUCOSE NEGATIVE (NEGATIVE); KETONE NEGATIVE (NEGATIVE); NITRITE NEGATIVE (NEGATIVE); PROTEIN NEGATIVE (NEGATIVE); SPECIFIC GRAVITY 1.025 (1.005-1.020); UROBILINOGEN NORMAL (NORMAL)
[2019-03-19 08:32] LABS: APTT 31.4 SECONDS (22.8-39.4); INR 0.91 (0.85-1.17); PROTIME 11.8 SECONDS (11.6-15.0)
[2019-03-19 10:17] VITALS: BP 131/62
== END 2019-03-19 10:12 | disposition home or self-care (01) ==
LOC: D.ER 07:09
PROVIDERS: Family Medicine
DX: N93.9 Abnormal uterine and vaginal bleeding, unspecified (principal); I25.2 Old myocardial infarction; I10 Essential (primary) hypertension; Z86.73 Personal history of transient ischemic attack (TIA), and cerebral infarction without residual deficits; E11.9 Type 2 diabetes mellitus without complications; Z79.84 Long term (current) use of oral hypoglycemic drugs

== ENCOUNTER 2019-03-22 08:00 | Outpatient (CLI) | payer MEDICAID | END 2019-03-22 23:59 | disposition home or self-care (01) | LOC: D.MAMMO 08:00 | PROVIDERS: ATTEND Nurse Practitioner | DX: R92.2 Inconclusive mammogram (principal) ==

== ENCOUNTER → 2019-05-31 14:04 | Outpatient (CLI) | payer MEDICAID | END | disposition home or self-care (01) | LOC: D.RAD 14:04 | PROVIDERS: ATTEND Pain Medicine Interventional Pain Medicine | DX: M46.82 Other specified inflammatory spondylopathies, cervical region (principal); M47.892 Other spondylosis, cervical region ==

== ENCOUNTER 2020-06-26 10:30 | Outpatient (CLI) | payer MEDICAID | END 2020-06-26 11:00 | disposition home or self-care (01) | LOC: D.MAMMO 10:30 | PROVIDERS: ATTEND Nurse Practitioner | DX: Z12.31 Encounter for screening mammogram for malignant neoplasm of breast (principal) ==